=== PATIENT | male | born 1980 | race Caucasian/White ===

== ENCOUNTER 2019-02-26 23:59 | Emergency (ER) | payer MEDICAID, SELFPAY ==
[2019-02-27] VITALS: BP 123/89; PULSE 90; RESP 18; TEMP 36.7; O2SAT 96; BMI 31.0
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
[2019-02-27] MEDS: HYDROmorphone 1 MG/ML Syringe IV (01:16)
[2019-02-27] MEDS: BACITRACIN 15 GM Tube 1 APPLIC TOPICAL (01:16)
[2019-02-27 01:21] VITALS: BP 121/77; PULSE 90; RESP 18; O2SAT 96
[2019-02-27 01:42] VITALS: BP 121/77; PULSE 90; RESP 16; TEMP 36.7; O2SAT 96
== END 2019-02-27 01:48 | disposition designated cancer center or children's hospital (05) ==
LOC: ED 02-27 00:43
PROVIDERS: Emergency Provider Emergency Medicine; Family Provider Internal Medicine; PCP Internal Medicine
DX: T24.201A Burn of second degree of unspecified site of right lower limb, except ankle and foot, initial encounter (principal); T24.202A Burn of second degree of unspecified site of left lower limb, except ankle and foot, initial encounter; T21.05XA Burn of unspecified degree of buttock, initial encounter; T21.06XA Burn of unspecified degree of male genital region, initial encounter; T31.0 Burns involving less than 10% of body surface; L97.329 Non-pressure chronic ulcer of left ankle with unspecified severity; L97.129 Non-pressure chronic ulcer of left thigh with unspecified severity; L97.119 Non-pressure chronic ulcer of right thigh with unspecified severity; X15.0XXA Contact with hot stove (kitchen), initial encounter; Y93.9 Activity, unspecified; Y92.9 Unspecified place or not applicable; Z72.0 Tobacco use
CPT/HCPCS: 96374; 99285; A4216

== ENCOUNTER 2019-04-17 02:45 | Emergency (ER) | payer MEDICAID, SELFPAY ==
[2019-04-17 02:47] VITALS: BP 127/77; PULSE 88; RESP 16; TEMP 36.9; O2SAT 93; BMI 32.0
--- NOTE | 2019-04-17 03:08 | RAD_ITS ---
STUDY: X-RAY - UNILATERAL RIBS ( RIGHT ) WITH CHEST REASON FOR EXAM: Male, 38 years old. fell down some concrete steps last night -- c/o anterior mid to upper rt rib pain TECHNIQUE - RIBS: 3 view(s) of the ribs. TECHNIQUE - CHEST: Frontal view COMPARISON: None. FINDINGS - RIBS: Normal visualized ribs without a demonstrated fracture. FINDINGS - CHEST: No apparent pneumothorax, pneumonia, pleural effusion, or edema. Subsegmental linear atelectasis left greater than right lung bases. Cardiac silhouette, desi and mediastinal contours are within normal limits. Atherosclerosis thoracic aorta. No acute osseous abnormality. No evidence of free air under the diaphragm. RAD/Ribs Uni Min 3V w/PA Chest IMPRESSION: No apparent fracture, no acute findings. Electronically Signed: Vaughn Breaux, at 3:49 EST Tel , Service support ,
--- NOTE | 2019-04-17 03:09 | ED.DCSUM_ITS ---
History of Present Illness Chief Complaint: Fall Informant: Patient Narrative: Patient presents status post mechanical fall. At 9 PM approximately 6 hours ago he thought on 3 steps. He struck the right side of his ribs on this step. He also suffered an abrasion to his right mcnamara and a bruise to his right knee. He denies any significant pain in his right knee. He is able to move it without significant pain. He tried to sleep off the pain but when he awoke he had worsening pain in his right ribs. Is a sharp pain worse when he takes a deep breath. Denies any shortness of breath at rest. No previous rib fractures. Current severity is moderate. Worse by coughing and taking a deep breath. Past Medical History - Allergies and Home Meds Allergies/Adverse Reactions: Allergies bee venom protein (honey bee) Allergy (Verified 04/17/19 02:53) Swelling diphenhydramine [From Benadryl] Allergy (Verified 04/17/19 02:53) Swelling Primary Care Physician: Sarah Gaspar DO [Primary Care Provider] - Prior records reviewed: Yes Past Medical History: - - Denies Lives: With Family Smoking Status: Current every day smoker Alcohol: None Drugs: None Review of Systems General: Denies: Chills, Fever, Sweats Eyes: Denies: Visual changes - bilaterally, Diplopia ENT: Denies: Rhinorrhea, Sore throat Cardiovascular: Reports: Chest pain, - - Right rib pain. Denies: Palpitations Respiratory: Denies: Dyspnea, Cough, Dyspnea on exertion Gastrointestinal: Denies: Abdominal pain, Nausea, Vomiting, Diarrhea, Melena, Hematochezia Genitourinary: Denies: Dysuria, Hematuria, Frequency Musculoskeletal: Reports: Extremity Pain. Denies: Back pain Skin: Denies: Rash, Wounds Neurological: Denies: Headache, Weakness, Numbness Physical Exam Vital Signs/Narrative: Vital Signs Temp Pulse Resp BP Pulse Ox 04/17/19 02:47 98.4 F 88 16 127/77 H 93 General: Well nourished, Well developed, No Acute Distress Head: Normocephalic, Atraumatic Eyes: Perrl, EOMI ENT: Moist mucous membranes, No rhinorrhea Neck: Supple, Nontender Cardiovascular: Regular rate, Regular rhythm, No murmurs Respiratory: No distress, CTA bilaterally, Chest nontender, - - Numbness in the right medial ribs chest lateral to the sternum. This is point tenderness. No bony step-off deformity or crepitus Abdomen: Soft, Nontender, Nondistended, Normal bowel sounds Back: Nontender, Normal Inspection Extremities: No edema, Tenderness - Very mild tenderness to the patella. Small contusion noted. Negative for: Nontender Skin: No rash, Trauma - Upper fissure abrasion to the right mcnamara.. Negative for: Normal color Neurological: Alert, Oriented x3, Cranial nerves II-XII grossly intact, Normal Strength, Normal Sensation Psychological: Normal affect, Normal Mood Diagnostic/Tx/Re-eval - Medical Decision Making Patient given a dose of morphine. X-ray of the right ribs obtained. X-ray shows no fractures. Patient felt much better after treatment. Will be discharg ed with a short course of Percocet. At this time I feel he has a rib contusion. We will follow-up as an outpatient. ED Disposition - Plan for ED Patient: Disposition: Home or Assisted Living Diagnosis: Contusion of rib on right side Instructions: Rib Contusion Prescriptions: Oxycodone HCl/Acetaminophen [Percocet 5/325] 1 - 2 tab PO Q6H PRN PRN 3 Days #12 tab PRN Reason: Pain Prescription Printed Referrals: Sarah Gaspar DO [Primary Care Provider] -
[2019-04-17] MEDS: Morphine 4 MG/ML Syringe IV (03:13)
[2019-04-17 04:37] VITALS: BP 113/68; PULSE 80; RESP 14; O2SAT 87
--- NOTE | 2019-04-17 04:49 | ED.RN ---
PT STATES HE DOESN'T HAVE A RIDE HOME. SUGGESTED [employer] THAT STARTS AT 0500, THE [employer] BUS, ETC. PT ASKED FOR AN AMBULETTE, DISCUSSED THE EXTREME WAIT AND NOT APPROPRIATE. PT BEGAN USING PHONE TO GET RIDE HOME.
== END 2019-04-17 04:51 | disposition home or self-care (01) ==
PROVIDERS: Emergency Provider Emergency Medicine; PCP Internal Medicine
DX: S20.211A Contusion of right front wall of thorax, initial encounter (principal); S80.01XA Contusion of right knee, initial encounter; S80.811A Abrasion, right lower leg, initial encounter; W10.9XXA Fall (on) (from) unspecified stairs and steps, initial encounter; Y93.9 Activity, unspecified; Y92.9 Unspecified place or not applicable; Y99.9 Unspecified external cause status; F17.200 Nicotine dependence, unspecified, uncomplicated; Z88.8 Allergy status to other drugs, medicaments and biological substances; Z79.899 Other long term (current) drug therapy
CPT/HCPCS: 71101; 96374; 99283; A4216